=== PATIENT | female | born 1960 ===

== ENCOUNTER 2025-03-03 06:23 | Day surgery (SDC) | payer SELFPAY | END 2025-03-03 14:55 | disposition home or self-care (01) | LOC: GI 06:23 | PROVIDERS: ATTENDING PHYSICIAN Internal Medicine Gastroenterology | DX: Z12.11 Encounter for screening for malignant neoplasm of colon (principal); R19.5 Other fecal abnormalities; K64.8 Other hemorrhoids; K57.30 Diverticulosis of large intestine without perforation or abscess without bleeding; R12 Heartburn; K22.89 Other specified disease of esophagus; K31.89 Other diseases of stomach and duodenum; K22.70 Barrett's esophagus without dysplasia; D12.0 Benign neoplasm of cecum; D12.2 Benign neoplasm of ascending colon; D12.3 Benign neoplasm of transverse colon | CPT/HCPCS: 45385; 43239; 88305; 88342 ==

== ENCOUNTER 2025-04-01 14:03 | Emergency (ER) | payer BC, SELFPAY ==
[2025-04-01 14:14] VITALS: BP 135/66
[2025-04-01 14:53] LABS: Hematocrit 40.8 % (37.0-47.0); Hemoglobin 13.0 g/dL (12.0-16.0); Mean Corp Hgb Conc. 31.9 g/dL (33.0-37.0); Mean Corpuscular Volume 91.5 fL (81.0-99.0); Nucleated Red Blood Cells % 0 %; Platelet Count 264 10^3/uL (130-400); Red Cell Dist. Width 12.4 % (11.5-14.5); Urine Character Slightly Cloudy (Clear)
[2025-04-01 15:02] LABS: Urine Squamous Cell >30 /LPF (Few)
[2025-04-01 15:04] LABS: Urine Red Blood Cell 0-2 /HPF (0-2)
[2025-04-01 15:07] LABS: ALT (SGPT) 22 U/L (0-35); AST (SGOT) 24 U/L (14-36); Albumin 4.5 g/dl (3.5-5.0); Alkaline Phosphatase 74 U/L (38-126); Blood Urea Nitrogen 17 mg/dl (7-17); Calcium 9.7 mg/dl (8.4-10.2); Carbon Dioxide 28 mmol/L (22-30); Chloride 103 mmol/L (98-107); Glucose 114 mg/dl (70-99); Lipase 82 U/L (23-300); Potassium 5.2 mmol/L (3.5-5.1); Sodium 135 mmol/L (135-145); Total Protein 7.2 g/dl (6.3-8.2); eGFR > 60.00
[2025-04-01 16:55] VITALS: BMI 17.4
[2025-04-01] MEDS: TORADOL 15 MG IV (16:58)
[2025-04-01] MEDS: NSS 1000 IV (16:58)
--- NOTE | 2025-04-01 16:58 | ED.GENMED ---
History of Present Illness
General
Chief Complaint: Abdominal Pain
Source: patient
Exam Limitations: none
Time Seen by Provider: 04/01/25 16:23
Nursing documentation reviewed up to this point in time: agreed with
History of Present Illness
History of Present Illness:
Patient is a 64-year-old female with history of diverticulitis who presents to the emergency department with 5 days of abdominal pain. Patient states she began with lower abdominal pain on Friday and has had persistent pain as well as intermittent
fevers throughout the week. She endorses very little appetite with abnormal bowel movement stating she went '5 times a day'. She does report some mild aching into her lower back. No dysuria, hematuria, vomiting or abnormal vaginal bleeding.
Patient states that a few weeks ago she saw her ELECTROMECHANICAL ASSEMBLY TECHNICIAN for her annual appointment where her routine UA was found to have WBCs, positive leukocyte esterase. When these abdominal symptoms began this week she was may be related to the abnormal UA�she
contacted her WELL SITE DRILLING ENGINEER who started her on a course of Keflex. She started the Keflex on Friday and was initially noticing improvement in her symptoms yesterday however felt acute worsening pain once again today.
Patient has had a past history of diverticulitis.
She had a colonoscopy about 1 month ago with a few polyps removed found to be benign.
Review of Systems
Review of Systems
Allergies reviewed?: Yes
All Other Systems: ROS reviewed and negative except as documented in HPI and ROS
Phy Exam
Physical Exam
Physical Exam:
Vitals: Mildly hypertensive, otherwise vital signs stable. Afebrile
General: Patient is well appearing, no acute distress
Skin: Warm and dry, no rashes or lesions
Head: Normocephalic, atraumatic
Eyes: Sclera nonicteric.
Throat: Protecting airway
Neck: Normal ROM, no cervical spine tenderness, no meningismus
Cardiac: Regular rate and rhythm, no murmurs.
Pulm: Normal respiratory effort, no wheezes, rales, rhonchi heard on exam
Abdomen: Abdomen soft. Moderate tenderness in left mid abdomen/left lower quadrant. No rebound tenderness or guarding. No CVA tenderness.
Extremities: No evidence of cyanosis or edema. 2+ DP pulses bilaterally
Neuro: AAOx3. Grossly intact.
Psychiatric: Normal affect.
Course
Orders/Labs/Results
Orders:
Orders
04/01/25 14:35
Complete Blood Count/With Diff Urgent
Comprehensive Metabolic Panel Urgent
Lipase Urgent
Urinalysis Reflex To Culture Urgent
Date Specimen was Collected: 04/01/25
Time Specimen was Collected: 14:18
Urine Microscopic Reflex Cult Urgent
Urine Culture Urgent
NAN Source: U
Specimen Description:
Date Specimen was Collected: 04/01/25
Time Specimen was Collected: 14:18
04/01/25 16:50
0.9% Sodium Chloride 1000 ml [Nss] 1,000 ml IV BOLUS
Ketorolac [Toradol] 15 mg IV NOW STA
04/01/25 16:51
CT Abd/pelvis W Iv Cont Urgent
Comment:
Reason For Exam: LLQ pain, anorexia, fever
04/01/25 18:38
0.9% Sodium Chloride 500 ml [Nss] 500 ml IV BOLUS
04/01/25 19:55
Amoxicillin 875 mg/Clav 125 mg [Augmentin 875 mg/125 mg] 1 tablet PO NOW STA
Abnormal Lab Results
04/01/25
14:35
WBC 10.9 H 10^3/uL
(4.8-10.8)
MCHC 31.9 L g/dL
(33.0-37.0)
Absolute Neuts (auto) 8.8 H 10^3/uL
(1.4-6.5)
Absolute Monos (auto) 0.7 H 10^3/uL
(0.1-0.6)
Neutrophils % 80.3 H %
(42.2-75.2)
Lymphocytes % 12.1 L %
(20.5-51.1)
Potassium 5.2 H mmol/L
(3.5-5.1)
Glucose 114 H mg/dl
(70-99)
Urine Ketones 1+ A
(Negative)
Ur Occult Blood Reflex 2+ A
(Negative)
Leukocyte Esterase Rfl 3+ A
(Negative)
Urine WBC (Reflex) 11-15 A /HPF
(0-5)
Urine Bacteria (Reflex) Moderate A
(Negative)
Urine Albumin (Reflex) 1+ A
(Neg - Trace)
04/01/25 14:35
04/01/25 14:35
Vital Signs
Initial and Last Documented VS:
Initial Vital Signs
Temp Pulse Resp BP Pulse Ox
98.3 F 88 16 135/66 98
04/01/25 14:14 04/01/25 14:14 04/01/25 14:14 04/01/25 14:14 04/01/25 14:14
Last Documented Vital Signs
Temp Pulse Resp BP Pulse Ox
98.3 F 88 16 120/64 97
04/01/25 14:14 04/01/25 14:14 04/01/25 14:14 04/01/25 20:00 04/01/25 20:00
MDM/Problems Addressed
Differential Diagnosis Includes:
Not limited to: Acute diverticulitis, pyelonephritis/UTI, renal colic, constipation, viral colitis, etc.
MDM/Problems Addressed:
64-year-old female presents with 5 days of abdominal pain, anorexia, and intermittent fevers. No associated vomiting or dysuria. History of diverticulitis. Vitals stable on presentation.
Laboratory workup notable for mild leukocytosis on CBC. Chemistry panel is unremarkable. Urinalysis shows presence of WBCs and 3+ leukocyte esterase, but also significant squamous epithelial cells, suggesting possible contamination and unclear
clinical significance.
CT abdomen/pelvis demonstrates acute diverticulitis involving the distal transverse colon. Imaging cannot entirely exclude a mass; however, patient had a colonoscopy one month ago with no suspicious lesions. Only benign polyps were biopsied at that
time.
Given clinical presentation with fever, localized pain, and supportive imaging, this is most consistent with acute infectious diverticulitis. Will initiate antibiotics in the ED. Patient is advised to follow up with gastroenterology for
consideration of repeat imaging or endoscopic evaluation as appropriate, given imaging findings.
Strict return precautions reviewed, including worsening abdominal pain, persistent fever, vomiting, or inability to tolerate oral intake. Patient is in agreement with the plan.
Chronic conditions affecting care:
Diverticulitis
Acute Exacerbation and/or Progression of Chronic Illness:
Acute diverticulitis
*Radiology
Radiology exam reviewed: radiology read reviewed
*Pulse Oximetry
SaO2: 98
Oxygen Mode of Delivery: Room air
Patient hypoxic: no
*EKG
Interpreted by ED Provider?: NA
*Performance Improvement Manager Interpretation
Rate: Performance Improvement Manager- N/A
*Critical Care Note
Total Time (30-74mins, 75-104mins- exclusive of procedures): Not Applicable
Data Reviewed
Review of Other/Old Records Reveals: Operative Reports (Colonoscopy from 03/03/[address] Piña-a few polyps removed which resulted as benign tubular adenoma, no other abnormal findings)
ED Attending Note
-
Portions of this chart may have been created with voice recognition software.� Occasional wrong word or��sound alike� substitutions may have occurred due to the inherent limitations of voice recognition software.
Discharge Plan
Departure
Patient Disposition: Home (Routine Discharge)
Date of Disposition: 04/01/25
Time of Disposition: 19:57
Patient with high blood pressure during this ER visit?: Yes
Condition: Good
Discharge Problem:
Acute diverticulitis
Instructions: Clear Liquid Diet, Diverticulitis (DC), BLOOD PRESSURE
Prescriptions:
New
amoxicillin-pot clavulanate 875-125 mg tablet
1 tab PO BID 10 Days Qty: 20 0RF
Referrals:
Presley Barksdale MD [Active, ColoRectal]
Margaret Piña MD [Active, Gastroenterology] - Next open appointment
UNKNOWN - PT DOES,NOT KNOW [Family Provider]
Activity Restrictions/Additional Instructions:
RETURN TO THE EMERGENCY DEPARTMENT WITH ANY FEVER, PERSISTENT/WORSENING ABDOMINAL PAIN, INTRACTABLE NAUSEA/VOMITING, SIGNS OF SEVERE DEHYDRATION, WORSENING IN SYMPTOMS, OR ANY OTHER CONCERNS
- Your CT scan showed significant inflammation of the distal transverse colon. This is likely acute diverticulitis however an underlying mass cannot be completely excluded today. Please be sure that you follow-up closely with your GI doctor for
further evaluation/management.
- A prescription for antibiotics have been sent to your pharmacy. Please take twice a day for the next 10 days. I would recommend a clear liquid diet over the next few days and slowly advance to low fiber. Please take Tylenol and/or Motrin as
needed for pain. Stay well-hydrated.
- Follow-up with primary care and GI to ensure symptoms are improving.
Monitor your symptoms closely and return to the emergency department with any acute worsening/new symptoms or any other concerns
Interventions
Interventions:
*Risk Screen - Suicide Last Done: 04/01/25 14:14
*General Assessment Last Done: 04/01/25 14:14
*Neglect/Abuse Screening Last Done: 04/01/25 17:03
*ED- Fall Risk Assessment Last Done: 04/01/25 17:03
*ED COVID-19 Vaccine History Last Done: 04/01/25 14:14
*ED Influenza Vaccine History Last Done: 04/01/25 14:14
*Nursing Disposition Last Done: 04/01/25 20:25
CG-Ofjgch-Mhomncposx Assessment Last Done: 04/01/25 17:03
Discharge Date and Time
Discharge Date/Time: 04/01/25 20:25
Print Language: MALDIVIAN
[2025-04-01 17:01] VITALS: BP 131/70
[2025-04-01 18:18] VITALS: BP 119/57
[2025-04-01 19:00] VITALS: BP 115/63
[2025-04-01] MEDS: NSS 500 IV (19:09)
[2025-04-01 20:00] VITALS: BP 120/64
[2025-04-01] MEDS: AUGMENTIN 875 MG/125 MG 1 TABLET PO (20:09)
== END 2025-04-01 20:25 | disposition home or self-care (01) ==
LOC: EMR 14:03
PROVIDERS: Student in an Organized Health Care Education/Training Program; EMERGENCY PHYSICIAN Emergency Medicine
DX: K57.32 Diverticulitis of large intestine without perforation or abscess without bleeding (principal)
CPT/HCPCS: 96374; 96361; 99284; 74177; 80053; 81003; 81015; 83690; 85025; 87086; Q9967